=== PATIENT | male | born 1980 | race African-American/Black ===

== ENCOUNTER 2018-04-03 15:29 | Observation (INO) | payer MEDICAID, SELFPAY ==
[2018-04-03 15:30] VITALS: BP 144/82; PULSE 97; RESP 16; TEMP 36.7; O2SAT 99; BMI 30.4
--- NOTE | 2018-04-03 15:53 | ED.DCSUM_ITS ---
- ER Visit Summary Date of Service: 04/03/18 Chief Complaint: Percocet abuse. Requesting detox History of Present Illness: The patient is a 37 M past medical or surgical history. Patient states for the last year he has been abusing Percocet. Says he wants to get clean. He stopped using the Percocet 2-1/2 days ago. States he is having withdrawal symptoms such as nausea, vomiting, diarrhea and abdominal cramping. He feels anxious. He denies any other drugs of abuse. He wants to be admitted for detox. Physical Examination: Well-appearing young male. Vital signs are stable afebrile. HEENT exam unremarkable. Neck nontender no lymphadenopathy. Lungs clear to auscultation bilaterally. Heart regular rate and rhythm no murmur. Abdomen is soft and nontender. Normal bowel sounds no peritoneal signs. Patient is moving all 4 extremities. They are neurovascularly intact. Calves are nontender without edema. Skin without rashes. Back nontender. Neurologically he is awake and alert with no focal motor deficits. He does seem somewhat anxious. Test Results: None Emergency Department Course and Treatment: I have already spoken to the [facility]. I have the hospitalist on page for admission. Treatment Plan: Admission for detox for Percocet abuse. I have already spoken to Dr. Sue Reyes who will be down to evaluate the patient for admission. Disposition: Admission Impression: History of Percocet abuse requesting detox Withdrawal from opiate abuse This note was generated with [employer] dictation software. It may contain incorrect words, spelling, and punctuation that were not noted in review of the chart prior to signing ED Disposition - Plan for ED Patient: Chief Complaint: Substance Abuse Referrals: Care Physician,No Primary [Primary Care Provider] -
--- NOTE | 2018-04-03 16:25 | NURSING ---
321 TERELETSKY WITHDRAWAL FROMPERCOCET ABUSE, DETOX
--- NOTE | 2018-04-03 16:29 | ED.RN ---
per dr duong, don't send pt upstairs yet
[2018-04-03 17:05] VITALS: BP 141/83; PULSE 86; RESP 16; TEMP 37.1; O2SAT 100; BMI 29.4
--- NOTE | 2018-04-03 17:14 | HP.PCM_ITS ---
Addendum entered and electronically signed by OPHELIA Scott 04/03/18 17:27: Code Visit Addendum: clarification - no hx of psvt in this patient - entered in error Original Note: Problem List (1) Opiate withdrawal Status: Acute (2) Nicotine abuse Status: Chronic History of Present Illness Date of Admission: 04/03/18 Chief Complaint: opiate withdrawal The patient is a 37 year old M with PMHx of PSVT s/p ablation and nicotine abuse (chew) who presents to the ER requesting help with detox, in acute opiate withdrawal. He currently c/o diarrhea, sweats, and muscle cramps. He uses about 6-7 percocets per day (not prescribed, he does not inject. He does not use other drugs. He does not drink. He last used 2 days ago. He has been using for about 2 years. He has not been through detox before. [] Past Medical History Past Medical History (Chronic Problems): Chronic Problems Nicotine abuse (Chronic) Allergies No Known Allergies Allergy (Verified 04/03/18 15:48) Home Medications: Ambulatory Orders Medication Instructions Recorded NK 04/03/18 Psychiatric History: No pertinent psych hx Lives: Alone Smoking Status: Current every day smoker Tobacco Use: Chew Alcohol: None Drugs: - - opiates - *Family History Maternal History Items: No pertinent history Paternal History Items: No pertinent history Review of Systems Constitutional: Reports: - - sweats. Denies: Chills, Fever, Weight Change HEENT: Denies: Head Aches, Sinus Congestion, Sinus Drainage Cardiovascular: Denies: Chest Pain, Palpitations Respiratory: Denies: Cough, Shortness of breath at rest, Sputum production Gastrointestinal: Reports: Diarrhea. Denies: Abdominal Pain, Nausea, Vomiting Genitourinary: Denies: Dysuria Musculoskeletal: Reports: - - muscle spasms. Denies: Joint Pain, Joint Tenderness Skin: Denies: Rash, Wounds Neurological: Denies: Numbness, Tingling, Focal weakness Psychiatric: Denies: Anxiety, Depression, Homicidal Ideations, Suicidal Ideations Hematologic/ Lymphatic: Denies: Easy Bruising, Easy Bleeding VTE Information - Inpt Only VTE Present on Admission: No VTE Mechan Device Prophylaxis: None VTE Pharm Prophylaxis ordered?: No Reason prophylaxis not ordered:: Procedure Not Indicated Patient Problems: Active and Suspected Problems Opiate withdrawal (Acute) - Physical Exam General: Alert, Oriented x3, Cooperative HEENT: Atraumatic, PERRLA, EOMI, Normocephalic Neck: Supple, No JVD, Negative Carotid Bruits Lungs: Clear to auscultation, Normal air movement Cardiovascular: Regular rate, No murmurs Abdomen: Bowel Sounds Present, Soft, Non Tender Extremities: No edema, Capillary Refill Less than 3 Seconds Skin: No rashes, No breakdown Musculoskeletal: No Tenderness to Palpation of Joints or Extremities Neurological: Cranial nerves II-XII grossly intact Psych/Mental Status: Normal Affect, Appropriate Vital Signs Temp Pulse Resp BP Pulse Ox 98.1 F 97 16 144/82 H 99 04/03/18 15:30 04/03/18 15:30 04/03/18 15:30 04/03/18 15:30 04/03/18 15:30 Oxygen Delivery Method Room Air Weight: 193 lb 5.526 oz Body Mass Index (BMI) 29.4 Assessment/Plan All Active Problems Opiate withdrawal (Acute) 1. Acute opiate withdrawal - commence medical stabilization protocol with subutex. Uses 6-7 percocets per day, last use 2 days ago, been using for 2 years. No prior rehab. Current symptoms muscle cramps, sweats, diarrhea 2. Nicotine abuse - declines patch. chews. DVT ppx: early ambulation Medical stabilization day 1 of 4. This patient was seen by Matteo Cole PA-C under the supervision of Doctor Amaro.
[2018-04-03] MEDS: Buprenorphine HCl 2 MG TAB.SUBL 4 MG SL (17:47)
[2018-04-03] MEDS: cloNIDine HCl 0.1 MG Tablet PO ×2 (17:47→21:54)
[2018-04-03] MEDS: Dicyclomine 10 MG Capsule 20 MG PO (17:47)
[2018-04-03 17:55] VITALS: BP 141/83; PULSE 86; RESP 16; TEMP 37.1
[2018-04-03 21:46] VITALS: BP 128/80; PULSE 67; RESP 14; TEMP 36.9
[2018-04-03] MEDS: Methocarbamol 750 MG Tablet PO (21:54)
[2018-04-04 00:01] VITALS: BP 114/79; PULSE 78; RESP 16; TEMP 36.8
[2018-04-04] MEDS: Ondansetron ODT 4 MG Tablet PO (00:09)
[2018-04-04] MEDS: Buprenorphine HCl 2 MG TAB.SUBL 4 MG SL ×2 (01:31→09:34)
[2018-04-04 05:50] VITALS: BP 122/81; PULSE 82; RESP 16; TEMP 36.6
[2018-04-04] MEDS: Ibuprofen 600 MG Tablet PO (05:55)
[2018-04-04] MEDS: cloNIDine HCl 0.1 MG Tablet PO (05:56)
[2018-04-04] MEDS: Methocarbamol 750 MG Tablet PO (05:56)
[2018-04-04] MEDS: Dicyclomine 10 MG Capsule 20 MG PO (05:59)
[2018-04-04 10:00] VITALS: BP 114/70; PULSE 55; RESP 16; TEMP 36.9
--- NOTE | 2018-04-04 10:44 | PCM.PROGNOTE ---
Patient Problems: Active and Suspected Problems Opiate withdrawal (Acute) Subjective: 37-year-old patient admitted to the hospital on 04/03/18 with acute opiate withdrawal. Admits to using Percocet daily. Denies any intravenous drug use. He does snort his Percocet on occasion. He has never been in rehab. He tells me he is ready to get off Percocet and get on with his life. He started using Percocet because friends were doing it and he wanted to be part of the crowd. His last bowel movement was last night. Diarrhea has resolved. He denies nausea. He tells me he slept well last night and he is currently very sleepy. No abdominal cramping. Vital signs stable. No lab drawn in admission. PHYSICAL EXAM: GENERAL: alert, oriented X 3, Cooperative, NAD, sleepy but able to answer questions appropriately ORAL: moist mucosa, no mucosal lesions NECK: No JVD, supple, trachea midline LUNGS: CTA, symmetric chest expansion HEART: RRR, Normal S1 and S2, no rub, no gallop ABDOMEN: soft, NT, ND, BS present, no guarding with palpation EXTREMITIES: no edema, no cyanosis, no calf tenderness SKIN: No rashes, no breakdown NEUROLOGIC: no focal neurologic deficits PSYCH: appropriate, normal affect, pleasant Impressions 1. Acute opiate withdrawal 2. Nicotine dependence-declines patches. 3. Chronic Percocet dependence Continue with the [facility] protocol - Physical Exam Vital Signs Temp Pulse Resp BP Pulse Ox 98.5 F 55 L 16 114/70 100 04/04/18 10:00 04/04/18 10:00 04/04/18 10:00 04/04/18 10:00 04/03/18 17:05 Oxygen Delivery Method Room Air Weight: 193 lb 5.526 oz Body Mass Index (BMI) 29.4 Medical Necessity - Tobacco Use Smoking Status: Current every day smoker Tobacco Use: Chew Assessment/Plan All Active Problems Opiate withdrawal (Acute) Code Visit Inpatient E&M: 65911 Subs Hosp L2
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
--- NOTE | 2018-04-04 17:05 | PCM.DC.SUM ---
Discharge Date and Diagnosis Date of Admission: 04/03/18 Date of Discharge: 04/04/18 - Primary Discharge Diagnosis Acute opiate withdrawal - Secondary Discharge Diagnosis Chronic Problems Nicotine abuse (Chronic) Chronic narcotic dependence Hospital Course and Treatment Imaging Results: None None Operations: None Procedures: None Summary of Care Provided: The patient is a 37 year old M with chronic narcotic dependence who presented to the hospital requesting admission to the [facility] for acute opiate withdrawal. He takes Percocet on a daily basis and admits to snorting his Percocet. He denies any intravenous drug use. He denied ever being in rehab before. He was admitted to the hospital and the [facility] protocol for acute opiate withdrawal was initiated. He was seen in the a.m. on 04/04/2018 and was very somnolent. He had no diarrhea, nausea, vomiting and he was not diaphoretic. Later in the day he left the hospital AGAINST MEDICAL ADVICE. He did not wait for me to revisit him and discuss why he was leaving. He did talk with the [facility] charge nurse prior to DC. - Physical Exam Vital Signs Temp Pulse Resp BP Pulse Ox 98.5 F 55 L 16 114/70 100 04/04/18 10:00 04/04/18 10:00 04/04/18 10:00 04/04/18 10:00 04/03/18 17:05 Oxygen Delivery Method Room Air Weight: 193 lb 5.526 oz Body Mass Index (BMI) 29.4 Home Medications: Medications to take at Discharge NK 04/03/18 Primary Care Physician: Care Physician,No Primary [Primary Care Provider] - Medical Necessity - Tobacco Use Smoking Status: Current every day smoker Tobacco Use: Chew Meaningful Use Info Meaningful Use Diagnoses (Choose all that apply): None applicable Code Visit Inpatient E&M: 47074 Disch Hosp
== END 2018-04-04 10:58 | disposition left against medical advice (07) ==
LOC: ED 16:08 → MS3 16:36
PROVIDERS: Admitting Provider Internal Medicine; Emergency Provider Emergency Medicine; Visit Provider Internal Medicine
DX: F11.23 Opioid dependence with withdrawal (principal); Z23 Encounter for immunization; F17.220 Nicotine dependence, chewing tobacco, uncomplicated
CPT/HCPCS: 97802; 99218; 99281; 90686; G0378